=== PATIENT | male | born 1985 | race Caucasian/White ===

== ENCOUNTER 2017-07-24 09:58 | Emergency (ER) | payer OTHER ==
[~2017-07-24] VITALS: Ht 172.7 cm; Wt 83.7 kg
[2017-07-24 10:03] VITALS: BP 136/82; Ht 172.7 cm; Wt 83.7 kg
== END 2017-07-24 11:49 | disposition home or self-care (01) ==
LOC: ED 09:58
DX: S66.397A Other injury of extensor muscle, fascia and tendon of left little finger at wrist and hand level, initial encounter (principal); Z88.8 Allergy status to other drugs, medicaments and biological substances; W45.8XXA Other foreign body or object entering through skin, initial encounter; Y93.89 Activity, other specified; Y92.89 Other specified places as the place of occurrence of the external cause; Y99.8 Other external cause status

== ENCOUNTER 2018-06-03 20:52 | Emergency (ER) | payer MEDICAID ==
[~2018-06-03] VITALS: Ht 172.7 cm; Wt 88.5 kg
[2018-06-03 20:55] VITALS: Ht 172.7 cm; Wt 88.5 kg
[2018-06-03 22:20] VITALS: BP 143/97
== END 2018-06-03 22:20 | disposition home or self-care (01) ==
LOC: ED 20:52
DX: S61.411A Laceration without foreign body of right hand, initial encounter (principal); F32.9 Major depressive disorder, single episode, unspecified; Z88.8 Allergy status to other drugs, medicaments and biological substances; W26.8XXA Contact with other sharp object(s), not elsewhere classified, initial encounter; Y93.89 Activity, other specified; Y92.89 Other specified places as the place of occurrence of the external cause; Y99.8 Other external cause status
CPT/HCPCS: J2001